=== PATIENT | male | born 1980 | race Asian ===

== ENCOUNTER 2017-04-16 13:15 | Emergency (ER) | payer BC ==
[~2017-04-16] VITALS: Ht 172.7 cm; Wt 81.0 kg
[~2017-04-16 13:15] MED LIST: ACET-1256 PO; BENZ100C18 PO; CLR10 PO; PHEN-617 PO; PRLSR20 PO; VENL75CA PO
[2017-04-16 13:17] VITALS: TEMP 36.9; Ht 172.7 cm; Wt 81.0 kg
[2017-04-16] MEDS ORDERED: VENL75CA PO (13:43)
[2017-04-16] MEDS ORDERED: VENL150C PO (13:43)
[2017-04-16] MEDS ORDERED: ZPAK PO (13:43)
--- NOTE | 2017-04-16 13:54 | DIAGNOSTIC IMAGING REPORT ---
CHEST 2 VIEWS ROUTINE CLINICAL HISTORY: cough dyspnea COMPARISON STUDY: 07/20/2015 FINDINGS: The bones soft tissues and hemidiaphragms are normal. The cardiomediastinal silhouette is normal. The lungs are clear. The pulmonary vasculature is normal. IMPRESSION: Negative chest. The above report was generated using voice recognition software. It may contain grammatical, syntax or spelling errors. Electronically signed by: Umberto Barry M.D. 04/16/2017 1:53 PM Dictated Date/Time: 04/16/2017 1:53 PM
--- NOTE | 2017-04-16 14:33 | EMERGENCY ROOM VISIT NOTE ---
History First contact with patient: 13:21 Chief Complaint: COUGH Stated Complaint: COUGH,CHEST PAIN Nursing Triage Summary: Patient reports cough that is productive and was seen at the walk in clinic yesterday but did not have an xray. Patient reports possible exposure to measles on April 04 History of Present Illness The patient is a 36 year old male who presents to the Emergency Room with complaints of cough for the past 4 days. The patient states that he has had a cough productive of green mucus for the past 4 days. He has felt feverish, but has not taken his temperature. The patient is concerned because he states he had a possible exposure to measles. He is an employee at [employer] and reports that he was contacted by [facility] today and told that he may have been exposed to measles on April 04. He is unsure of his immunization status and has contacted Dr. Rose, his primary care provider , who is ordering titers. The patient denies any chest pain, shortness of breath, conjunctivitis, coryza or rash. He denies history of measles. He states he is otherwise healthy. He does state he was evaluated by a walk-in clinic a few days ago and prescribed a Z-mike, tessalon perles, and a cough syrup. Review of Systems A complete 10 point review of systems was reviewed with the patient with pertinent positives and negatives as per history of present illness. All else were negative. Past Medical/Surgical History Medical Problems: (1) Anxiety (2) Depression Social History Smoking Status: Never Smoker Alcohol Use: occasionally Housing Status: lives alone Occupation Status: employed Current/Historical Medications Scheduled Azithromycin (Azithromycin), 1 DOSE PO UD Venlafaxine Hcl (Effexor Xr), 75 MCG PO QAM Venlafaxine Hcl (Effexor Xr), 150 MG PO QAM Scheduled PRN Acetaminophen (Tylenol), 1,000 MG PO Q4 PRN for Pain or Fever Benzonatate (Tessalon Perles), 100 MG PO TID PRN for Cough Ipxqdxxcekwqi-Iazdkfqgkjgca-Sf (Mucinex Sinus-Max Severe), 1 TAB PO Q12 PRN for COLD SX Physical Exam Vital Signs Date Time Temp Pulse Resp B/P (MAP) Pulse Ox O2 Delivery O2 Flow Rate FiO2 04/16/17 15:24 82 18 146/87 99 04/16/17 13:27 99 Room Air 7/24/17 13:17 36.9 86 18 158/105 95 Physical Exam VITALS: Vitals are noted on the nurse's note and reviewed by myself. Vital signs stable. GENERAL: This is a 36-year-old male, in no acute distress, nondiaphoretic, well- developed well-nourished. SKIN: The skin was without rashes. EARS: External auditory canals clear, tympanic membranes pearly olguin without erythema or effusion bilaterally. EYES: Pupils equal round and reactive to light and accommodation. Conjunctivae without injection, sclerae without icterus. NOSE: Patent, turbinates without inflammation or discharge. No sinus tenderness. MOUTH: Mucous membranes moist. Tonsils are not enlarged. Pharynx without erythema or exudate. NECK: Supple without nuchal rigidity. No lymphadenopathy. HEART: Regular rate and rhythm without murmurs gallops or rubs. LUNGS: Clear to auscultation bilaterally without wheezes, rales or rhonchi. NEURO: Patient was alert and oriented to person place and time. Medical Decision & Procedures ER Provider Diagnostic Interpretation: CHEST 2 VIEWS ROUTINE FINDINGS: The bones soft tissues and hemidiaphragms are normal. The cardiomediastinal silhouette is normal. The lungs are clear. The pulmonary vasculature is normal. IMPRESSION: Negative chest. Laboratory Results 04/16/17 14:14 Red Blood Count 4.86, Mean Corpuscular Volume 91.6, Mean Corpuscular Hemoglobin 31.1, Mean Corpuscular Hemoglobin Concent 33.9, Mean Platelet Volume 9.3, Neutrophils (%) (Auto) 67.0, Lymphocytes (%) (Auto) 23.8, Monocytes (%) (Auto) 6.3, Eosinophils (%) (Auto) 2.0, Basophils (%) (Auto) 0.5, Neutrophils # (Auto) 7.73, Lymphocytes # (Auto) 2.75, Monocytes # (Auto) 0.73, Eosinophils # (Auto) 0.23, Basophils # (Auto) 0.06 Test 04/16/17 14:14 White Blood Count 11.55 K/uL (4.8-10.8) Red Blood Count 4.86 M/uL (4.7-6.1) Hemoglobin 15.1 g/dL (14.0-18.0) Hematocrit 44.5 % (42-52) Mean Corpuscular Volume 91.6 fL (80-100) Mean Corpuscular Hemoglobin 31.1 pg (25-34) Mean Corpuscular Hemoglobin Concent 33.9 g/dl (32-36) Platelet Count 313 K/uL (130-400) Mean Platelet Volume 9.3 fL (7.4-10.4) Neutrophils (%) (Auto) 67.0 % Lymphocytes (%) (Auto) 23.8 % Monocytes (%) (Auto) 6.3 % Eosinophils (%) (Auto) 2.0 % Basophils (%) (Auto) 0.5 % Neutrophils # (Auto) 7.73 K/uL (1.4-6.5) Lymphocytes # (Auto) 2.75 K/uL (1.2-3.4) Monocytes # (Auto) 0.73 K/uL (0.11-0.59) Eosinophils # (Auto) 0.23 K/uL (0-0.5) Basophils # (Auto) 0.06 K/uL (0-0.2) RDW Standard Deviation 42.1 fL (36.4-46.3) RDW Coefficient of Variation 12.6 % (11.5-14.5) Immature Granulocyte % (Auto) 0.4 % Immature Granulocyte # (Auto) 0.05 K/uL (0.00-0.02) Medications Administered Medications (Trade) Dose Ordered Sig/Nery Route Start Time Stop Time Status Last Admin Dose Admin Albuterol (Ventolin Hfa Inhaler) 2 puffs NOW ONCE INH 04/16/17 15:00 04/16/17 15:01 DC 04/16/17 15:20 2 PUFFS Medical Decision Differential diagnosis includes pneumonia, upper respiratory infection, measles , among others. The patient is a 36-year-old male who presents today complaining of cough and feeling feverish. The patient was concerned because he was told he could have been exposed to measles. I did speak with Crystal Fraga of infection control. She contacted the Department of Health and they recommended that we test the patient for measles IgG and IgM antibody and have him follow-up with [facility] for quarantine instructions. Chest x-ray showed no evidence of pneumonia. CBC was unremarkable. Patient is already taking an antibiotic. He was given a Ventolin inhaler. He was instructed to [facility] and his primary care provider. He verbalized understanding of this assessment and treatment plan and was discharged home in good condition. Medication Reconcilliation Current Medication List: was personally reviewed by me Blood Pressure Screening Patient's blood pressure: Elevated blood pressure Blood pressure disposition: Elevated BP felt to be situational Impression Primary Impression: Upper respiratory infection Departure Information Dispostion Home / Self-Care Condition GOOD Referrals Chance Rose MD (PCP) Patient Instructions [facility] Additional Instructions Continue your prescribed medications as scheduled. Follow-up with [facility] regarding quarantine/return to work. Follow-up with Dr. Rose for measles titers. Return to the emergency department for any worsening or new/concerning symptoms. Problem Qualifiers Primary Impression: Upper respiratory infection URI type: unspecified URI Qualified Codes: J06.9 - Acute upper respiratory infection, unspecified
[2017-04-16 14:40] LABS: BASO % 0.5 %; BASO ABS # 0.06 K/uL (0-0.2); COMPLETE YES; HEMATOCRIT 44.5 % (42-52); IG% 0.4 %; LYMPH % 23.8 %; LYMPH ABS # 2.75 K/uL (1.2-3.4); MEAN CELL VOLUME 91.6 fL (80-100); MEAN CORPUSCULAR HEMOGLOBIN 31.1 pg (25-34); MEAN CORPUSCULAR HGB CONC 33.9 g/dl (32-36); MEAN PLATELET VOLUME 9.3 fL (7.4-10.4); MONO % 6.3 %; PLATELET COUNT 313 K/uL (130-400); RED BLOOD COUNT 4.86 M/uL (4.7-6.1); WHITE BLOOD COUNT 11.55 K/uL (4.8-10.8)
[2017-04-16] MEDS ORDERED: ALBUTEROL HFA 8 GM INHALER INH ONE (15:00)
[2017-04-16 15:24] VITALS: BP 146/87; PULSE 82; O2SAT 99
== END 2017-04-16 15:26 | disposition home or self-care (01) ==
LOC: C.EDB 13:16 → C.EDA 15:26
DX: J06.9 Acute upper respiratory infection, unspecified (principal); F32.9 Major depressive disorder, single episode, unspecified; F41.9 Anxiety disorder, unspecified; Z79.899 Other long term (current) drug therapy